=== PATIENT | female | born 2000 | race Caucasian/White ===

== ENCOUNTER → 2018-01-10 | Outpatient (CLI) | payer OTHER ==
--- NOTE | 2018-01-10 12:48 | Diagnostic Imaging Report ---
PROCEDURE:EXTREMITY ULTRASOUND COMPARISON:None. INDICATIONS:Swelling, Mass, or Lump in the left axilla TECHNIQUE:Color and grayscale ultrasound evaluation analysis was performed in the usual manner. FINDINGS: Sonographic evaluation of the left axilla with attention to palpable abnormality demonstrates mildly focally increased subcutaneous fat, however, no localized masses, lymphadenopathy or fluid collections. CONCLUSION: No focal masses or lymphadenopathy in the left axilla. Bob Zambrano M.D. Dictated by: Bob Zambrano M.D. on 01/10/2018 at 12:49 Electronically approved by: Bob Zambrano M.D. on 01/10/2018 at 12:49
== END ==
LOC: US 12:17
PROVIDERS: ATTEND Family Medicine
DX: R22.9 Localized swelling, mass and lump, unspecified (principal)
CPT/HCPCS: 76882